=== PATIENT | female | born 1980 | race Caucasian/White ===

== ENCOUNTER 2017-02-14 17:55 | Emergency (ER) | payer BC ==
[~2017-02-14] VITALS: Ht 170.2 cm; Wt 82.6 kg
[2017-02-14 20:32] LABS: BASOPHIL % 0.4 % (0-2); PLATELET COUNT 272 x10^3mcL (130-400); RED CELL DISTRIBUTION WIDTH 13.9 % (11.5-14.5)
[2017-02-14 21:15] LABS: microscopic required? YES; urine erythrocyte 3+ (NEGATIVE)
[2017-02-14 22:58] VITALS: BP 114/65
== END 2017-02-14 22:58 | disposition home or self-care (01) ==
LOC: ED 17:55
PROVIDERS: Specialist
DX: N93.9 Abnormal uterine and vaginal bleeding, unspecified (principal)
CPT/HCPCS: 36415

== ENCOUNTER 2018-01-08 10:11 | Emergency (ER) | payer OTHER ==
[~2018-01-08] VITALS: Ht 167.6 cm; Wt 84.5 kg
[2018-01-08 10:14] VITALS: Ht 167.6 cm; Wt 84.5 kg
[2018-01-08 11:58] LABS: BASOPHIL % 0.6 % (0-2); PLATELET COUNT 292 x10^3mcL (130-400); RED CELL DISTRIBUTION WIDTH 14.5 % (11.5-14.5)
[2018-01-08 12:17] LABS: CALCIUM 8.8 mg/dL (8.5-10.1); CARBON DIOXIDE 30.8 mmol/L (21-32); CHLORIDE SERUM 104 mmol/L (98-107); CREATININE SERUM 0.7 mg/dL (0.6-1.0); GFR1 > 60 mL/min; GLUCOSE SERUM 98 mg/dL (74-106); SODIUM SERUM 138 mmol/L (136-145)
[2018-01-08 12:22] LABS: ALBUMIN 3.7 g/dL (3.4-5.0); ALKALINE PHOSPHATASE 108 U/L (46-116); ALT/SGPT 50 U/L (14-59); AMYLASE 32 U/L (25-115); AST/SGOT 19 U/L (15-37); BILIRUBIN TOTAL 0.4 mg/dL (0.20-1.00); LIPASE 220 IU/L (73-393); TOTAL PROTEIN, SERUM 7.4 g/dL (6.4-8.2)
[2018-01-08 14:12] VITALS: BP 121/82
== END 2018-01-08 14:13 | disposition home or self-care (01) ==
LOC: ED 10:11
PROVIDERS: Emergency Medicine
DX: K80.20 Calculus of gallbladder without cholecystitis without obstruction (principal)
CPT/HCPCS: 36415; 83880; J1885; Q0092; Q0162